=== PATIENT | female | born 1985 | race Caucasian/White ===

== ENCOUNTER 2022-09-23 10:36 | Emergency (ER) | payer MEDICAID ==
[~2022-09-23] VITALS: Ht 167.6 cm; Wt 74.8 kg
[2022-09-23 10:39] VITALS: BP 132/95
--- NOTE | 2022-09-23 14:33 | NUR ---
Patient discharged with v/s stable. Written and verbal after care instructions given and explained. Patient verbalized understanding. Ambulatory with steady gait. All questions addressed prior to discharge. Advised to follow up with PMD.
== END 2022-09-23 14:32 | disposition home or self-care (01) ==
LOC: MED 10:36
DX: S93.492A Sprain of other ligament of left ankle, initial encounter (principal); X58.XXXA Exposure to other specified factors, initial encounter; Y93.89 Activity, other specified; Y92.89 Other specified places as the place of occurrence of the external cause; Y99.8 Other external cause status
CPT/HCPCS: 29515; 73610; 99283; Q0092